=== PATIENT | male | born 1955 | race Caucasian/White ===

== ENCOUNTER → 2016-08-04 | Outpatient (CLI) | payer MEDICARE ==
[~2016-08-04] MED LIST: CIPRO 500MG TA500 MG PO; COLAZAL750 MG OR; COUMADIN 5MG TAB5 MG PO; COZAAR50 MG PO; IRON TABLETS325 MG PO; PRENATAL PLUS1 TA1 PO; PRILOSEC20 MG PO; PURINETHOL50 MG PO; WARFARIN SOD5 MG PO
== END ==
LOC: LAB 12:12
DX: Z79.01 Long term (current) use of anticoagulants (principal); Z51.81 Encounter for therapeutic drug level monitoring

== ENCOUNTER → 2016-11-15 | Outpatient (CLI) | payer MEDICARE ==
--- NOTE | 2016-11-15 17:39 | RADIOLOGY REPORT PS360 ---
US [id number] HISTORY: CHRONIC KIDNEY DISEASE STAGE 3 ORDERING PHYSICIAN: CRISTINE THOMAS PATIENT AGE: 61 years COMPARISON: None FINDINGS: RIGHT KIDNEY:Normal size and echogenicity. No hydronephrosis. 9.5 x 3.6 x 4.7 cm LEFT KIDNEY:No hydronephrosis. Normal size and echogenicity. 8.9 x 4.7 x 4.8 cm OTHER FINDINGS: There is mild bilateral renal cortical thinning. Bilateral renal blood flow noted. No mass is apparent IMPRESSION: Bilateral renal cortical thinning otherwise negative renal ultrasound
== END ==
LOC: RAD 14:30
DX: N18.3 Chronic kidney disease, stage 3 (moderate) (principal)

== ENCOUNTER → 2016-11-30 | Outpatient (CLI) | payer MEDICARE | LOC: LAB 14:33 | DX: Z79.01 Long term (current) use of anticoagulants (principal); Z51.81 Encounter for therapeutic drug level monitoring ==

== ENCOUNTER 2017-02-26 19:53 | Emergency (ER) | payer MEDICARE ==
--- OUTSIDE RECORDS SUMMARY | 2017-02-26 19:58 | External Medical Summary Rpt ---
Author Author IAN Address Unknown Phone [email or web address] Purpose Continuity of Care Document - through 2016 Problems Code Diagnosis DOS Provider Status 573.9 R07.89 OTHER CHEST PAIN V58.69
--- OUTSIDE RECORDS SUMMARY | 2017-02-26 19:58 | External Medical Summary Rpt ---
Author Author IAN Address Unknown Phone [email or web address] Purpose Continuity of Care Document - through 2016 Problems Code Diagnosis DOS Provider Status 573.9 R07.89 OTHER CHEST PAIN V58.69
--- OUTSIDE RECORDS SUMMARY | 2017-02-26 19:59 | External Medical Summary Rpt ---
Author Author IAN Address Unknown Phone [email or web address] Purpose Continuity of Care Document - through 2016
--- OUTSIDE RECORDS SUMMARY | 2017-02-26 19:59 | External Medical Summary Rpt ---
Author Author GRIC[employer]DA Lai, GRICELDA Lai Organization [employer] Address Unknown Phone Unavailable
--- OUTSIDE RECORDS SUMMARY | 2017-02-26 19:59 | External Medical Summary Rpt ---
Demographics Preferred Language Divehi Marital Status Unknown Buddhist Affiliation Unknown Race Unknown Ethnic Group Unknown Author Author , GRICELDA MADISON Address Unknown Phone Immunization Unable to retrieve immunization data due to connection failure with Immunization Registry. Please try again later.
--- OUTSIDE RECORDS SUMMARY | 2017-02-26 19:59 | External Medical Summary Rpt ---
Author Author IAN Address Unknown Phone [email or web address] Purpose Continuity of Care Document - through 2016
--- OUTSIDE RECORDS SUMMARY | 2017-02-26 19:59 | External Medical Summary Rpt ---
Demographics Preferred Language Kazakh Marital Status Unknown Sabianist Affiliation Unknown Race Unknown Ethnic Group Unknown Author Author , GRICELDA MADISON Address Unknown Phone Immunization Unable to retrieve immunization data due to connection failure with Immunization Registry. Please try again later.
[2017-02-26 20:20] VITALS: BP 133/86
== END 2017-02-26 20:21 | disposition home or self-care (01) ==
LOC: UTC 19:53
DX: Z43.3 Encounter for attention to colostomy (principal)
CPT/HCPCS: G0463

== ENCOUNTER → 2017-05-24 | Outpatient (CLI) | payer MEDICARE ==
[2017-05-24 13:35] LABS: URINE BILIRUBIN - DIPSTICK NEGATIVE (NEG); URINE BLOOD TRACE-INTACT (NEG)
[2017-05-24 13:57] LABS: HEMOGLOBIN 11.7 g/dL (14.1-18.0); LYMPH # 0.7 K/mm3 (0.7-4.5); LYMPH % 12.1 % (10-50)
[2017-05-24 15:15] LABS: BUN 22 mg/dL (7-18)
[2017-05-24 15:18] LABS: GFR (ESTIMATED) 39 ML/MIN (>60)
== END ==
LOC: LAB 13:04
PROVIDERS: Internal Medicine Nephrology
DX: N18.3 Chronic kidney disease, stage 3 (moderate) (principal)